=== PATIENT | female | born 1995 | race Caucasian/White ===

== ENCOUNTER 2017-01-24 10:51 | Emergency (ER) | payer MEDICAID ==
[~2017-01-24] VITALS: Ht 157.5 cm; Wt 113.9 kg
[~2017-01-24 10:51] MED LIST: ATARAX 25MG25 MG/TAB PO; ATIVAN 0.50.5 MG/TAB PO; CEFTIN 250250 MG/TAB PO; DEPAKOTE ER 50500 MG PO; FOLIC ACID0.4 MG PO; LATUDA20 MG PO; LATUDA80 MG PO; MOTRIN 600600 MG/TAB PO; NO HOME MEDICATIONS; PERCOCET 325 MG1 TA2 PO; PRENATAL1 TA7; ZYPREXA 5MG5 MG PO
[2017-01-24 10:56] VITALS: BP 135/66; TEMP 98.1
[2017-01-24] MEDS ORDERED: INVEGA3 MG PO (11:01)
[2017-01-24 12:02] VITALS: PULSE 83
== END 2017-01-24 12:04 | disposition home or self-care (01) ==
LOC: COL.ER 10:51
DX: L55.1 Sunburn of second degree (principal)

== ENCOUNTER 2017-02-28 11:11 | Emergency (ER) | payer MEDICAID ==
[~2017-02-28] VITALS: Ht 157.5 cm; Wt 117.4 kg
[~2017-02-28 11:11] MED LIST changes: +INVEGA3 MG PO
[2017-02-28 11:13] VITALS: BP 137/73; PULSE 103; TEMP 98.1
[2017-02-28] MEDS ORDERED: ZYPREXA 5MG5 MG PO (11:31)
[2017-02-28 12:05] LABS: PH 6 (5-8); SQUAMOUS EPITHELIAL 0-2 /hpf; URINE APPEARANCE Clear; URINE BACTERIA Rare /hpf; URINE BILIRUBIN Negative (NEGATIVE); URINE BLOOD Negative (NEGATIVE); URINE COLOR Yellow; URINE GLUCOSE Negative (NEGATIVE); URINE KETONE Negative (NEGATIVE); URINE RBC 0-2 /hpf; URINE UROBILINOGEN Negative (NEGATIVE); URINE WBC 0-2 /hpf
== END 2017-02-28 13:13 | disposition home or self-care (01) ==
LOC: COL.ER 11:11
PROVIDERS: Physician Assistant
DX: J02.9 Acute pharyngitis, unspecified (principal); R59.0 Localized enlarged lymph nodes; F31.9 Bipolar disorder, unspecified

== ENCOUNTER 2017-05-20 11:37 | Observation (INO) | payer MEDICAID ==
[2017-05-20] MEDS ORDERED: ATARAX 25MG25 MG/TAB PO (11:48)
[2017-05-20] MEDS ORDERED: VENTOLIN0.09 MG IH (12:02)
[2017-05-20 12:41] LABS: BASO % 0.3 % (0.0-2.0); EOS % 0.2 % (0-4.0); GRAN # 9.6 (1.4-6.5); HEMATOCRIT 43.2 % (37.0-47.0); HEMOGLOBIN 14.8 g/dl (12.5-16.0); LYMPH # 1.8 (1.2-3.4); LYMPH % 14.3 % (20.0-51.0); MEAN CELL VOLUME 85 fl (80.0-100.0); MEAN CORPUSCULAR HEMOGLOBIN 29 pg (27.0-31.0); MEAN CORPUSCULAR HGB CONC 34 g/dl (33.0-37.0); MONO # 0.8 (0.1-0.6); MONO % 6.8 % (1.7-9.3); PLATELET COUNT 303 K/mm3 (130-400); RED BLOOD COUNT 5.07 M/mm3 (4.10-5.30); REDCELL DISTRIBUTION WIDTH-CV 12.5 % (11.5-14.5); WHITE BLOOD COUNT 12.3 K/mm3 (4.8-10.8)
[2017-05-20 13:01] LABS: ADJUSTED CALCIUM 9.2 mg/dL (8.4-10.2); ALANINE AMINOTRANSFERASE 24 U/L (9-52); ALKALINE PHOSPHATASE 76 U/L (50-136); ANION GAP 14 mmol/L (7-16); BILIRUBIN,TOTAL 0.7 mg/dL (0.0-1.0); BLOOD UREA NITROGEN 12 mg/dL (7-17); CARBON DIOXIDE 20 mmol/L (22-30); CHLORIDE 106 mmol/L (98-107); CREATININE, serum 0.81 mg/dL (0.52-1.25); GLUCOSE 89 mg/dL (74-106); POTASSIUM 3.6 mmol/L (3.4-5.0); SODIUM 140 mmol/L (137-145); TOTAL PROTEIN 8.5 gm/dL (6.4-8.2)
[2017-05-20 13:06] LABS: ACETAMINOPHEN < 10 ug/mL (10-30); SALICYLATE < 1.0 mg/dL
[2017-05-20 13:11] LABS: AMPHETAMINE URINE NEGATIVE; BARBITURATES URINE NEGATIVE; BENZODIAZEPINES URINE NEGATIVE; BUPRENORPHINE URINE NEGATIVE; METHADONE URINE NEGATIVE; OPIATES URINE NEGATIVE; OXYCODONE URINE NEGATIVE; PHENCYCLIDINE URINE NEGATIVE; PROPOXYPHENE URINE NEGATIVE; THC CANNABINOIDS URINE POSITIVE
[2017-05-21 21:59] LABS: PH 5 (5-8); URINE APPEARANCE Clear; URINE BACTERIA Rare /hpf; URINE BILIRUBIN Negative (NEGATIVE); URINE BLOOD Negative (NEGATIVE); URINE COLOR Yellow; URINE GLUCOSE Negative (NEGATIVE); URINE KETONE Negative (NEGATIVE); URINE RBC 0-2 /hpf; URINE UROBILINOGEN Negative (NEGATIVE)
[2017-05-22 10:51] VITALS: BP 149/113; PULSE 115; TEMP 97.2
== END 2017-05-22 16:02 ==
LOC: COL.ER 11:37 → ICU 17:21
PROVIDERS: Emergency Medicine; Psychiatry & Neurology Psychiatry
DX: F31.9 Bipolar disorder, unspecified (principal); B37.9 Candidiasis, unspecified; F12.90 Cannabis use, unspecified, uncomplicated
CPT/HCPCS: 90791-AI; G0378; J3486

== ENCOUNTER 2017-07-01 23:00 | Emergency (ER) | payer MEDICAID ==
[~2017-07-01] VITALS: Ht 160 cm; Wt 113.6 kg
[~2017-07-01 23:00] MED LIST changes: +VENTOLIN0.09 MG IH
[2017-07-01 23:02] VITALS: TEMP 98.6
[2017-07-01] MEDS ORDERED: LATUDA20 MG PO (23:06)
[2017-07-01] MEDS ORDERED: ATARAX50 MG PO (23:07)
[2017-07-01] MEDS ORDERED: LATUDA80 MG PO (23:07)
[2017-07-01] MEDS ORDERED: ZYPREXA 5MG5 MG PO (23:08)
[2017-07-01 23:40] LABS: COLLECTION METHOD CLEAN CATCH
[2017-07-01 23:45] LABS: BASO % 0.4 % (0.0-2.0); EOS # 0.1 (0.0-0.7); EOS % 1.2 % (0-4.0); GRAN % 58.4 % (42.2-75.2); HEMATOCRIT 38.2 % (37.0-47.0); HEMOGLOBIN 13.1 g/dl (12.5-16.0); LYMPH # 3.3 (1.2-3.4); LYMPH % 32.3 % (20.0-51.0); MEAN CELL VOLUME 86 fl (80.0-100.0); MEAN CORPUSCULAR HEMOGLOBIN 29 pg (27.0-31.0); MEAN CORPUSCULAR HGB CONC 34 g/dl (33.0-37.0); MEAN PLATELET VOLUME 9.9 fl (7.4-10.4); MONO # 0.8 (0.1-0.6); MONO % 7.3 % (1.7-9.3); PLATELET COUNT 295 K/mm3 (130-400); RED BLOOD COUNT 4.47 M/mm3 (4.10-5.30); WHITE BLOOD COUNT 10.3 K/mm3 (4.8-10.8)
[2017-07-01 23:54] LABS: MUCOUS Present /lpf; PH 6 (5-8); SQUAMOUS EPITHELIAL 0-2 /hpf; URINE APPEARANCE Clear; URINE BACTERIA None Seen /hpf; URINE BILIRUBIN Negative (NEGATIVE); URINE BLOOD Negative (NEGATIVE); URINE COLOR Yellow; URINE GLUCOSE Negative (NEGATIVE); URINE KETONE Negative (NEGATIVE); URINE LEUKOCYTE ESTERASE Negative (NEGATIVE); URINE PROTEIN(semi-quant) Negative (NEGATIVE); URINE RBC 0-2 /hpf; URINE UROBILINOGEN Negative (NEGATIVE)
[2017-07-02 00:03] LABS: POTASSIUM 3.7 mmol/L (3.4-5.0)
[2017-07-02 00:05] LABS: ADJUSTED CALCIUM 8.8 mg/dL (8.4-10.2); ALBUMIN 4.3 gm/dL (3.5-5.0); BILIRUBIN,TOTAL 0.3 mg/dL (0.0-1.0); C-REACTIVE PROTEIN 1.5 mg/dL (0.0-0.9); CREATININE, serum 0.75 mg/dL (0.52-1.25); TOTAL PROTEIN 7.5 gm/dL (6.4-8.2)
[2017-07-02 00:07] LABS: STREP SCREEN NEGATIVE
[2017-07-02 00:21] LABS: INFLUENZA A NEGATIVE; INFLUENZA B NEGATIVE
[2017-07-02 00:50] VITALS: BP 145/82; PULSE 97
== END 2017-07-02 00:50 | disposition home or self-care (01) ==
LOC: COL.ER 23:00
PROVIDERS: Nurse Practitioner
DX: J02.9 Acute pharyngitis, unspecified (principal); R10.10 Upper abdominal pain, unspecified; F31.9 Bipolar disorder, unspecified; F41.9 Anxiety disorder, unspecified
CPT/HCPCS: J2550; J7030

== ENCOUNTER 2017-12-13 14:24 | Emergency (ER) | payer MEDICAID ==
[~2017-12-13] VITALS: Ht 157.5 cm; Wt 109.5 kg
[~2017-12-13 14:24] MED LIST changes: +ATARAX50 MG PO
[2017-12-13 14:43] VITALS: BP 153/76; PULSE 99; TEMP 97.9
== END 2017-12-13 15:19 | disposition home or self-care (01) ==
LOC: COL.ER 14:24
DX: L50.8 Other urticaria (principal); F31.9 Bipolar disorder, unspecified

== ENCOUNTER 2017-12-21 06:42 | Emergency (ER) | payer MEDICAID ==
[~2017-12-21] VITALS: Ht 157.5 cm; Wt 107.8 kg
[2017-12-21 07:10] VITALS: BP 144/67; TEMP 97.5
[2017-12-21] MEDS ORDERED: PREDNISONE20 MG PO (08:12)
[2017-12-21 08:31] VITALS: PULSE 97
== END 2017-12-21 08:32 | disposition home or self-care (01) ==
LOC: COL.ER 06:42
DX: L50.9 Urticaria, unspecified (principal); F31.9 Bipolar disorder, unspecified; Z88.8 Allergy status to other drugs, medicaments and biological substances
CPT/HCPCS: J7512

== ENCOUNTER 2018-02-14 20:40 | Emergency (ER) | payer MEDICAID ==
[~2018-02-14] VITALS: Ht 160 cm; Wt 102.3 kg
[~2018-02-14 20:40] MED LIST changes: +PREDNISONE20 MG PO
[2018-02-14 20:43] VITALS: TEMP 98.4
[2018-02-14] MEDS ORDERED: DESYREL 50MG50 MG PO (23:28)
[2018-02-14] MEDS ORDERED: VISTARIL50 MG PO (23:28)
[2018-02-15 00:18] LABS: BASO % 0.3 % (0.0-2.0); EOS # 0.1 (0.0-0.7); EOS % 0.7 % (0-4.0); GRAN # 8.5 (1.4-6.5); GRAN % 72.5 % (42.2-75.2); HEMATOCRIT 43.9 % (37.0-47.0); HEMOGLOBIN 14.9 g/dl (12.5-16.0); LYMPH # 2.3 (1.2-3.4); LYMPH % 19.9 % (20.0-51.0); MEAN CELL VOLUME 84 fl (80.0-100.0); MEAN CORPUSCULAR HEMOGLOBIN 28 pg (27.0-31.0); MEAN CORPUSCULAR HGB CONC 34 g/dl (33.0-37.0); MEAN PLATELET VOLUME 10.6 fl (7.4-10.4); MONO # 0.7 (0.1-0.6); MONO % 6.3 % (1.7-9.3); PLATELET COUNT 285 K/mm3 (130-400); RED BLOOD COUNT 5.25 M/mm3 (4.10-5.30); REDCELL DISTRIBUTION WIDTH-CV 12.7 % (11.5-14.5)
[2018-02-15 00:28] LABS: ALBUMIN 4.4 gm/dL (3.5-5.0); BILIRUBIN,TOTAL 0.5 mg/dL (0.0-1.0); CALCIUM 9.9 mg/dL (8.4-10.2); CREATININE, serum 0.63 mg/dL (0.52-1.25); POTASSIUM 3.9 mmol/L (3.4-5.0); TOTAL PROTEIN 8.3 gm/dL (6.4-8.2)
[2018-02-15 00:46] LABS: COLLECTION METHOD CLEAN CATCH
[2018-02-15 00:49] LABS: C-REACTIVE PROTEIN 0.6 mg/dL (0.0-0.9)
[2018-02-15 00:52] LABS: MUCOUS Present /lpf; PH 5 (5-8); SQUAMOUS EPITHELIAL 0-2 /hpf; URINE APPEARANCE Clear; URINE BACTERIA Rare /hpf; URINE BILIRUBIN Negative (NEGATIVE); URINE BLOOD Negative (NEGATIVE); URINE COLOR Yellow; URINE GLUCOSE Negative (NEGATIVE); URINE KETONE Negative (NEGATIVE); URINE LEUKOCYTE ESTERASE Negative (NEGATIVE); URINE NITRATE Negative (NEGATIVE); URINE PROTEIN(semi-quant) Negative (NEGATIVE); URINE RBC 0-2 /hpf; URINE UROBILINOGEN Negative (NEGATIVE)
[2018-02-15 02:20] VITALS: BP 107/82; PULSE 98
== END 2018-02-15 02:57 | disposition home or self-care (01) ==
LOC: COL.ER 20:40
PROVIDERS: Nurse Practitioner
DX: R10.2 Pelvic and perineal pain (principal); F31.9 Bipolar disorder, unspecified; F41.9 Anxiety disorder, unspecified; F12.90 Cannabis use, unspecified, uncomplicated; Z88.8 Allergy status to other drugs, medicaments and biological substances
CPT/HCPCS: J1885

== ENCOUNTER 2018-08-04 09:03 | Emergency (ER) | payer MEDICAID ==
[~2018-08-04] VITALS: Ht 157.5 cm; Wt 104.5 kg
[~2018-08-04 09:03] MED LIST changes: +DESYREL 50MG50 MG PO; +VISTARIL50 MG PO
[2018-08-04 09:15] VITALS: BP 129/75; PULSE 93; TEMP 98.2
== END 2018-08-04 11:06 | disposition home or self-care (01) ==
LOC: COL.ER 09:03
DX: S67.193A Crushing injury of left middle finger, initial encounter (principal); F12.90 Cannabis use, unspecified, uncomplicated; F31.9 Bipolar disorder, unspecified; Z88.5 Allergy status to narcotic agent; W23.0XXA Caught, crushed, jammed, or pinched between moving objects, initial encounter

== ENCOUNTER 2018-08-25 09:30 | Emergency (ER) | payer MEDICAID ==
[~2018-08-25] VITALS: Ht 157.5 cm; Wt 104.5 kg
[2018-08-25 09:34] VITALS: BP 132/61; TEMP 97.9
[2018-08-25] MEDS ORDERED: TYLENOL 500MG500 MG PO (09:45)
[2018-08-25] MEDS ORDERED: AMOXICILLIN 8751 TAB PO (09:59)
[2018-08-25 10:20] VITALS: PULSE 99
== END 2018-08-25 10:21 | disposition home or self-care (01) ==
LOC: COL.ER 09:30
DX: K04.7 Periapical abscess without sinus (principal); F31.9 Bipolar disorder, unspecified; F41.9 Anxiety disorder, unspecified

== ENCOUNTER 2018-10-24 12:59 | Emergency (ER) | payer MEDICAID ==
[~2018-10-24] VITALS: Ht 157.5 cm; Wt 109.1 kg
[~2018-10-24 12:59] MED LIST changes: +AMOXICILLIN 8751 TAB PO; +TYLENOL 500MG500 MG PO
[2018-10-24 13:12] VITALS: BP 162/87; TEMP 97.9
[2018-10-24] MEDS ORDERED: ATARAX 10MG10 MG/TAB PO (13:24)
[2018-10-24] MEDS ORDERED: ADVIL200 MG PO (13:25)
[2018-10-24] MEDS ORDERED: IBU800 M1 PO (13:59)
[2018-10-24] MEDS ORDERED: AMOXICILLIN 50500 MG PO (13:59)
[2018-10-24 14:19] VITALS: PULSE 85
== END 2018-10-24 14:20 | disposition home or self-care (01) ==
LOC: COL.ER 12:59
DX: K08.89 Other specified disorders of teeth and supporting structures (principal); F31.9 Bipolar disorder, unspecified

== ENCOUNTER 2018-11-21 20:27 | Emergency (ER) | payer MEDICAID ==
[~2018-11-21] VITALS: Ht 157.5 cm; Wt 113.2 kg
[~2018-11-21 20:27] MED LIST changes: +ADVIL200 MG PO; +AMOXICILLIN 50500 MG PO; +ATARAX 10MG10 MG/TAB PO; +IBU800 M1 PO
[2018-11-21 20:33] VITALS: BP 188/82; TEMP 98.1
[2018-11-21 21:20] LABS: BASO # 0.1 (0.0-0.2); BASO % 0.5 % (0.0-2.0); EOS # 0.1 (0.0-0.7); EOS % 0.7 % (0-4.0); GRAN # 7.7 (1.4-6.5); GRAN % 70.7 % (42.2-75.2); HEMATOCRIT 41.1 % (37.0-47.0); HEMOGLOBIN 13.9 g/dl (12.5-16.0); LYMPH # 2.2 (1.2-3.4); LYMPH % 20.6 % (20.0-51.0); MEAN CELL VOLUME 85 fl (80.0-100.0); MEAN CORPUSCULAR HEMOGLOBIN 29 pg (27.0-31.0); MEAN CORPUSCULAR HGB CONC 34 g/dl (33.0-37.0); MEAN PLATELET VOLUME 10.3 fl (7.4-10.4); MONO # 0.8 (0.1-0.6); MONO % 7.2 % (1.7-9.3); PLATELET COUNT 281 K/mm3 (130-400); RED BLOOD COUNT 4.82 M/mm3 (4.10-5.30); REDCELL DISTRIBUTION WIDTH-CV 12.4 % (11.5-14.5)
[2018-11-21 21:36] LABS: ALBUMIN 4.5 gm/dL (3.5-5.0); BILIRUBIN,TOTAL 0.4 mg/dL (0.0-1.0); C-REACTIVE PROTEIN 1.6 mg/dL (0.0-0.9); CALCIUM 9.3 mg/dL (8.4-10.2); CREATININE, serum 0.72 mg/dL (0.52-1.25); POTASSIUM 3.5 mmol/L (3.4-5.0)
[2018-11-21] MEDS ORDERED: ATIVAN 0.50.5 MG/TAB PO (22:11)
[2018-11-21] MEDS ORDERED: PREDNISONE20 MG PO (22:11)
[2018-11-21 22:30] VITALS: PULSE 105
[2018-11-22] MEDS ORDERED: ATIVAN 0.50.5 MG/TAB PO (20:57)
== END 2018-11-21 22:30 | disposition home or self-care (01) ==
LOC: COL.ER 20:27
PROVIDERS: Emergency Medicine
DX: F41.9 Anxiety disorder, unspecified (principal); F31.9 Bipolar disorder, unspecified
CPT/HCPCS: J7512

== ENCOUNTER 2018-11-22 18:36 | Emergency (ER) | payer MEDICAID ==
[2018-11-22 18:40] VITALS: TEMP 97.8
[2018-11-22 19:20] LABS: BASO # 0.1 (0.0-0.2); BASO % 0.5 % (0.0-2.0); EOS # 0.1 (0.0-0.7); EOS % 0.5 % (0-4.0); GRAN # 7.2 (1.4-6.5); GRAN % 65.7 % (42.2-75.2); HEMATOCRIT 39.8 % (37.0-47.0); HEMOGLOBIN 13.3 g/dl (12.5-16.0); LYMPH # 2.6 (1.2-3.4); LYMPH % 23.5 % (20.0-51.0); MEAN CELL VOLUME 86 fl (80.0-100.0); MEAN CORPUSCULAR HEMOGLOBIN 29 pg (27.0-31.0); MEAN CORPUSCULAR HGB CONC 33 g/dl (33.0-37.0); MEAN PLATELET VOLUME 10.5 fl (7.4-10.4); MONO % 9.4 % (1.7-9.3); PLATELET COUNT 292 K/mm3 (130-400); RED BLOOD COUNT 4.62 M/mm3 (4.10-5.30); REDCELL DISTRIBUTION WIDTH-CV 12.5 % (11.5-14.5)
[2018-11-22 19:32] LABS: ALBUMIN 4.7 gm/dL (3.5-5.0); BILIRUBIN,TOTAL 0.3 mg/dL (0.0-1.0); C-REACTIVE PROTEIN 1.7 mg/dL (0.0-0.9); CALCIUM 9.9 mg/dL (8.4-10.2); CREATININE, serum 0.76 mg/dL (0.52-1.25); POTASSIUM 3.1 mmol/L (3.4-5.0); TOTAL PROTEIN 8.1 gm/dL (6.4-8.2)
[2018-11-22 20:23] LABS: COLLECTION METHOD CLEAN CATCH
[2018-11-22 20:30] LABS: PH 5 (5-8); URINE APPEARANCE Hazy; URINE BACTERIA None Seen /hpf; URINE BILIRUBIN Negative (NEGATIVE); URINE BLOOD Negative (NEGATIVE); URINE COLOR Yellow; URINE GLUCOSE Negative (NEGATIVE); URINE KETONE Negative (NEGATIVE); URINE LEUKOCYTE ESTERASE Trace (NEGATIVE); URINE NITRATE Negative (NEGATIVE); URINE PROTEIN(semi-quant) Negative (NEGATIVE); URINE RBC 0-2 /hpf; URINE UROBILINOGEN Negative (NEGATIVE)
[2018-11-22] MEDS ORDERED: ATIVAN 0.50.5 MG/TAB PO (20:57)
[2018-11-22 21:07] VITALS: BP 120/87; PULSE 105
== END 2018-11-22 21:18 | disposition home or self-care (01) ==
LOC: COL.ER 18:36
PROVIDERS: Emergency Medicine
DX: F41.9 Anxiety disorder, unspecified (principal); R21 Rash and other nonspecific skin eruption; F31.9 Bipolar disorder, unspecified
CPT/HCPCS: J1200; J2060; J2405; J7030; J7512

== ENCOUNTER 2018-11-26 04:24 | Emergency (ER) | payer MEDICAID ==
[~2018-11-26] VITALS: Ht 157.5 cm; Wt 115.9 kg
[2018-11-26 04:27] VITALS: BP 152/80; PULSE 110; TEMP 98.2
[2018-11-26] MEDS ORDERED: CLEOCIN HCL300 MG PO (04:54)
== END 2018-11-26 05:05 | disposition home or self-care (01) ==
LOC: COL.ER 04:24
DX: K02.9 Dental caries, unspecified (principal); R68.84 Jaw pain; F31.9 Bipolar disorder, unspecified; Z79.51 Long term (current) use of inhaled steroids

== ENCOUNTER 2019-03-28 12:22 | Emergency (ER) | payer SELFPAY ==
[~2019-03-28] VITALS: Ht 157.5 cm; Wt 104.1 kg
[~2019-03-28 12:22] MED LIST changes: +CLEOCIN HCL300 MG PO
[2019-03-28 12:27] VITALS: BP 130/82; PULSE 102; TEMP 98.1
[2019-03-28] MEDS ORDERED: BUSPAR10 MG PO (12:30)
[2019-03-28] MEDS ORDERED: CEPHALEXIN500 M1 PO (13:13)
== END 2019-03-28 13:24 | disposition home or self-care (01) ==
LOC: COL.ER 12:22
DX: S91.311A Laceration without foreign body, right foot, initial encounter (principal); F31.9 Bipolar disorder, unspecified; F17.210 Nicotine dependence, cigarettes, uncomplicated; F12.90 Cannabis use, unspecified, uncomplicated; Z88.3 Allergy status to other anti-infective agents; W22.09XA Striking against other stationary object, initial encounter; Y92.009 Unspecified place in unspecified non-institutional (private) residence as the place of occurrence of the external cause

== ENCOUNTER → 2019-10-02 | Outpatient (CLI) | payer SELFPAY ==
[~2019-10-02] MED LIST changes: +BUSPAR10 MG PO; +CEPHALEXIN500 M1 PO
== END ==
LOC: COL.LAB 14:34
DX: Z01.89 Encounter for other specified special examinations (principal)

== ENCOUNTER → 2020-09-23 | Outpatient (CLI) | payer SELFPAY ==
[~2020-09-23] MED LIST changes: +ASPIRIN 81M81 MG/TA2 PO; +MOTRIN 800800 MG/TAB PO; +PRENATAL
== END ==
LOC: ZCOL.LAB
DX: Z20.822 Contact with and (suspected) exposure to COVID-19 (principal)

== ENCOUNTER 2020-09-27 07:07 | Inpatient (IN) | payer MEDICAID ==
[2020-09-27] VITALS (33 sets, daily range): BP systolic 98–164; BP diastolic 46–82; PULSE 65–113; TEMP 97–98
[~2020-09-27] VITALS: Ht 157.5 cm; Wt 109.5 kg
--- NOTE | 2020-09-27 07:05 | NUR ---
PATIENT HERE FOR INDUCTION. PATIENT CHANGED INTO GOWN, ON EFM, VITALS OBTAINED, ASSESMENT COMPLETE, PATIENT DENIES LEAKING OF FLUID, CONTRACTIONS OF BLEEDING. STEVE VASQUEZ HERE WITH PATIENT. IV STARTED, CONSENTS SIGNED. DR LOPEZ FOR PED, PATIENT WANTS TO GIVE BABY COLOSTRUM THEN BOTTLE FEED. PATIENTS QUESTIONS ASNWERED. PATIENT STATES HER DAUGHTER, MATT LIVES WITH HER. PATIENT STATES LAST MARIJUANA USE WAS EARLY IN
[~2020-09-27 07:07] MED LIST changes: -MOTRIN 800800 MG/TAB PO; -PRENATAL
[2020-09-27] MEDS ORDERED: PRENATAL (07:29)
[2020-09-27 07:42] LABS: BASO % 0.2 % (0.0-2.0); EOS # 0.1 (0.0-0.7); EOS % 0.8 % (0-4.0); GRAN # 6.2 (1.4-6.5); GRAN % 75.3 % (42.2-75.2); HEMATOCRIT 37.6 % (37.0-47.0); HEMOGLOBIN 12.9 g/dl (12.5-16.0); LYMPH # 1.5 (1.2-3.4); LYMPH % 17.6 % (20.0-51.0); MEAN CELL VOLUME 82 fl (80.0-100.0); MEAN CORPUSCULAR HEMOGLOBIN 28 pg (27.0-31.0); MEAN CORPUSCULAR HGB CONC 34 g/dl (33.0-37.0); MEAN PLATELET VOLUME 11.2 fl (7.4-10.4); MONO # 0.5 (0.1-0.6); MONO % 5.7 % (1.7-9.3); PLATELET COUNT 229 K/mm3 (130-400); RED BLOOD COUNT 4.59 M/mm3 (4.10-5.30); REDCELL DISTRIBUTION WIDTH-CV 13.7 % (11.5-14.5)
[2020-09-27 08:00] LABS: COLLECTION METHOD CLEAN CATCH
[2020-09-27 08:01] LABS: TRICYCLIC ANTIDEPRESS URINE NEGATIVE
[2020-09-27 08:14] LABS: PH 7 (5-8); URINE APPEARANCE Hazy; URINE BACTERIA Many /hpf; URINE BILIRUBIN Negative (NEGATIVE); URINE BLOOD Negative (NEGATIVE); URINE COLOR Yellow; URINE GLUCOSE Negative (NEGATIVE); URINE KETONE Negative (NEGATIVE); URINE LEUKOCYTE ESTERASE 1+ (NEGATIVE); URINE NITRATE Negative (NEGATIVE); URINE PROTEIN(semi-quant) Negative (NEGATIVE); URINE RBC 0-2 /hpf; URINE UROBILINOGEN Negative (NEGATIVE)
[2020-09-27 08:27] LABS: ALBUMIN 3.6 gm/dL (3.5-5.0); BILIRUBIN,TOTAL 0.4 mg/dL (0.0-1.0); CALCIUM 9.2 mg/dL (8.4-10.2); CREATININE, serum 0.49 (0.52-1.25); POTASSIUM 3.7 mmol/L (3.4-5.0); TOTAL PROTEIN 6.8 gm/dL (6.4-8.2)
--- NOTE | 2020-09-27 08:43 | NUR ---
PATIENT STATES SHE FEELS CRAMPING IN HER BACK, NOT PALPATING OR TRACING ON MONITOR
--- NOTE | 2020-09-27 11:00 | NUR ---
MONITORING NOT TRACING. INTERNAL SCALP ELECTRODE INSERTED, SVE PREFROMED. PATIENT SITTING UP FOR EPIDURAL
--- NOTE | 2020-09-27 11:20 | NUR ---
DECEL [phone] PATIENT WL, WR THEN WL, EPHDERINE GIVEN, SVE PREFORMED
--- NOTE | 2020-09-27 12:40 | NUR ---
BY DR BARNES. TO MOTHERS CHEST IN CARE OF AILIN BAER. FOB CUT CORD PLACENTA SPON DELIVERED AT 1242. PITOCIN AT 333 MLS/HR. FUNDAL MASSAGE PROVIDED. PERINEUM INTACT. ICE PACK TO PERINEUM. RECOVERY STARTED AT 1300.
[2020-09-27] MEDS ORDERED: MOTRIN 800800 MG/TAB PO (14:43)
[2020-09-28 08:43] VITALS: BP 127/63; PULSE 89; TEMP 98.4
--- NOTE | 2020-09-28 09:46 | NUR ---
Initial visit attempt; Nurse with family, Commercial Artist left card of congratulations for the of their son and information regarding the availability of spiritual care at [facility] [address].
--- NOTE | 2020-09-28 14:07 | NUR ---
can worker met with patient and father of the baby to assess needs. See baby's note for visit detail. Worker filed CPS report #[id number], due to positive drug screen for cannabinoids and faxed positive drug screen to DPS. Patient plans discharge home today. Worker collaborated with nurse regarding visit details. Worker and patient discussed anxiety. Patient states she has a prescription, from her primary care provider, for her anxiety. Patient states she is doing well at this time, and denies need for therapy.
== END 2020-09-28 14:55 | disposition home or self-care (01) | DRG 806 ==
LOC: LDR 07:07 → OB 09:40
PROVIDERS: ADMIT Obstetrics & Gynecology
PROC: 10E0XZZ Delivery of Products of Conception, External Approach (ICD-10-PCS; principal; 2020-09-27)
PROC: 10907ZC Drainage of Amniotic Fluid, Therapeutic from Products of Conception, Via Natural or Artificial Opening (ICD-10-PCS; 2020-09-27)
DX: O48.0 Post-term pregnancy (principal); O99.324 Drug use complicating childbirth; Z37.0 Single live birth; O13.4 Gestational [pregnancy-induced] hypertension without significant proteinuria, complicating childbirth; O99.214 Obesity complicating childbirth; E66.9 Obesity, unspecified; F12.90 Cannabis use, unspecified, uncomplicated; O69.81X0 Labor and delivery complicated by cord around neck, without compression, not applicable or unspecified; Z3A.40 40 weeks gestation of pregnancy
CPT/HCPCS: J2590; J2795; J7120

== ENCOUNTER 2024-07-10 16:45 | Emergency (ER) | payer MEDICAID ==
[~2024-07-10] VITALS: Ht 160 cm; Wt 129.5 kg
[~2024-07-10 16:45] MED LIST changes: +MOTRIN 800800 MG/TAB PO; +PRENATAL
[2024-07-10 16:49] VITALS: TEMP 98.6
[2024-07-10] MEDS ORDERED: ABILIFY5 MG PO (16:54)
[2024-07-10] MEDS ORDERED: Albuterol/Ipratropium 3 MG-0.5 MG/3 ML Neb Soln IH ONE (17:30)
[2024-07-10] MEDS ORDERED: Albuterol 90 MCG/PUFF 8 GM MDI IH ONE (17:30)
[2024-07-10] MEDS ORDERED: predniSONE 20 MG TAB PO ONE (17:30)
[2024-07-10 18:07] LABS: STREP A POSITIVE
[2024-07-10] MEDS ORDERED: AMOXICILLIN 50500 MG PO (18:30)
[2024-07-10] MEDS ORDERED: Amoxicillin 500 MG CAP PO ONE (18:30)
[2024-07-10] MEDS ORDERED: PREDNISONE20 MG PO (18:30)
[2024-07-10 18:40] VITALS: BP 125/81; PULSE 92
== END 2024-07-10 18:51 | disposition home or self-care (01) ==
LOC: COL.ER 16:45
PROVIDERS: Nurse Practitioner
DX: J06.9 Acute upper respiratory infection, unspecified (principal); J02.9 Acute pharyngitis, unspecified; U07.0 Vaping-related disorder
CPT/HCPCS: J7512